=== PATIENT | female | born 1990 | race American Indian/Alaskan Native ===

== ENCOUNTER 2018-07-14 16:16 | Emergency (ER) | payer OTHER ==
[2018-07-14 17:07] VITALS: BP 144/87
[2018-07-14] MEDS ORDERED: NORCO 5/325 PO ONE (17:37)
[2018-07-14] MEDS ORDERED: FLEXERIL PO ONE (17:38)
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
[2018-07-14 17:56] LABS: HCG Qualitative,Urine Negative (Negative)
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
== END 2018-07-14 20:53 | disposition home or self-care (01) ==
LOC: ED 16:16
DX: S16.1XXA Strain of muscle, fascia and tendon at neck level, initial encounter (principal); S39.012A Strain of muscle, fascia and tendon of lower back, initial encounter; V47.5XXA Car driver injured in collision with fixed or stationary object in traffic accident, initial encounter; Y93.89 Activity, other specified; Y92.488 Other paved roadways as the place of occurrence of the external cause; Y99.8 Other external cause status
CPT/HCPCS: 72040; 72100; 81025; 99284